=== PATIENT | female | born 1990 | race Caucasian/White ===

== ENCOUNTER 2018-11-27 21:51 | Emergency (ER) | payer OTHER ==
[~2018-11-27] VITALS: Ht 167.6 cm; Wt 97.1 kg
[2018-11-27 21:58] VITALS: Ht 167.6 cm; Wt 97.1 kg
[2018-11-27 23:32] LABS: microscopic required? YES; urine erythrocyte 3+ (NEGATIVE)
[2018-11-27 23:36] LABS: PLATELET COUNT 194 x10^3mcL (130-400); RED CELL DISTRIBUTION WIDTH 13.5 % (11.5-14.5)
[2018-11-27 23:39] LABS: CALCIUM 8.4 mg/dL (8.5-10.1); CARBON DIOXIDE 26.3 mmol/L (21-32); CHLORIDE SERUM 106 mmol/L (98-107); CREATININE SERUM 0.9 mg/dL (0.6-1.0); GFR1 > 60 mL/min; GLUCOSE SERUM 109 mg/dL (74-106); POTASSIUM SERUM 3.5 mmol/L (3.5-5.1); SODIUM SERUM 141 mmol/L (136-145)
[2018-11-27 23:44] LABS: ALBUMIN 3.6 g/dL (3.4-5.0); ALKALINE PHOSPHATASE 72 U/L (46-116); ALT/SGPT 19 U/L (14-59); AST/SGOT 17 U/L (15-37); BILIRUBIN TOTAL 0.39 mg/dL (0.20-1.00); LIPASE 113 IU/L (73-393); TOTAL PROTEIN, SERUM 7.7 g/dL (6.4-8.2)
[2018-11-27 23:49] LABS: BASOPHIL % 0 % (0-2)
[2018-11-28 07:45] VITALS: BP 113/72
== END 2018-11-28 07:45 | disposition short-term general hospital (02) ==
LOC: ED 21:51
PROVIDERS: Emergency Medicine
DX: N13.6 Pyonephrosis (principal); E03.9 Hypothyroidism, unspecified
CPT/HCPCS: J7030; Q0092; Q0162; Q9967